=== PATIENT | female | born 2000 | race Caucasian/White ===

== ENCOUNTER 2022-12-07 23:27 | Emergency (ER) | payer BC, OTHER ==
[~2022-12-07] VITALS: Ht 162.6 cm; Wt 63.5 kg
[2022-12-08 03:15] VITALS: BP 130/78; TEMP 98; O2SAT 100
== END 2022-12-08 03:15 | disposition home or self-care (01) ==
LOC: ER 23:32
DX: S62.313A Displaced fracture of base of third metacarpal bone, left hand, initial encounter for closed fracture (principal); W22.8XXA Striking against or struck by other objects, initial encounter; Y93.66 Activity, soccer; Y92.89 Other specified places as the place of occurrence of the external cause; Y99.8 Other external cause status
CPT/HCPCS: 73130-TC